=== PATIENT | male | born 1945 | race Hispanic/Latino ===

== ENCOUNTER 2018-08-16 05:08 | Inpatient (IN) | payer MEDICARE ==
[2018-08-13 12:47] LABS: BASOPHILS # (AUTO) 0.1 (0.0-0.1); BASOPHILS % 0.7 % (0.0-1.0); EOSINOPHILS # (AUTO) 0.2 (0.0-0.4); EOSINOPHILS % 2.7 % (0.0-6.0); HEMATOCRIT 38.3 % (38.2-49.6); HEMOGLOBIN 12.2 g/dL (14.0-18.0); LYMPHOCYTES # (AUTO) 2.2 (1.0-3.2); LYMPHOCYTES % 25.6 % (18.0-39.1); MEAN CORPUSCULAR HEMOGLOBIN 28.5 pg (28-32); MEAN CORPUSCULAR HGB CONC 31.9 g/dL (31-35); MEAN CORPUSCULAR VOLUME 89.5 fL (81-99); MONOCYTES # (AUTO) 0.5 (0.2-0.8); MONOCYTES % 5.6 % (4.4-11.3); NEUTROPHILS # (AUTO) 5.5 (2.1-6.9); NEUTROPHILS % 65.2 % (38.7-80.0); PLATELET COUNT 312 x10e3/uL (140-360); RED BLOOD COUNT 4.28 x10e6/uL (4.3-5.7); RED CELL DISTRIBUTION WIDTH 14.5 % (11.7-14.4)
--- NOTE | 2018-08-13 12:48 | Diagnostic Imaging Report ---
EXAMINATION: PA and lateral views of the chest. COMPARISON: None CLINICAL HISTORY: Preoperative examination for urologic surgery DISCUSSION: The lungs are well-inflated and without focal airspace consolidation, pleural effusion, or pneumothorax. Tortuous thoracic aorta with otherwise normal cardiomediastinal contour. No overt pulmonary edema. No acute osseous abnormality. 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 IMPRESSION: No acute cardiopulmonary abnormalities. Signed by: Dr. Sathya Keith M.D. on 08/13/2018 12:45 PM
[2018-08-13 12:53] LABS: ANION GAP 10.9 mmol/L (8-16); CALCIUM 9.3 mg/dL (8.4-10.2); CREATININE, SERUM 1.44 mg/dL (0.72-1.25); POTASSIUM 3.9 mmol/L (3.5-5.1)
[~2018-08-16] VITALS: Ht 160 cm; Wt 85.3 kg
[~2018-08-16 05:08] MED LIST: AMLODIPINE BESYL5 MG PO; LOSARTAN POTASS25 MG PO; NOVOLIN N100 UNIT/1 SQ; TRAZODONE HCL50 MG PO; TYLENOL WITH C1 EACH PO
--- OUTSIDE RECORDS SUMMARY | 2018-08-16 05:11 | XMS REPORT ---
Author Author [facility] Address Unknown Phone Unavailable Care Team Providers Care Sack Maker Name Role Phone Jermaine GUZMAN Unavailable Unavailable Problems This patient has no known problems. Allergies, Adverse Reactions, Alerts This patient has no known allergies or adverse reactions. Medications This patient has no known medications. Results Test Description Test Time Test Comments Text Results Atomic Results Result Comments CHEST 2 VIEWS 2018-08-13 12:44:00 [place] [id number] Patient Name: BETTY HEART MR #: [id number] : 1945 Age/Sex: 73/M Req #: [id number] Adm Physician: Ordered by: HARRISON GUZMAN MD Report #: [id number] Location: OR Room/Bed: Procedure: [id number] DX/CHEST 2 VIEWS Exam Date: 08/13/18 Exam Time: 1225 REPORT STATUS: Signed EXAMINATION: PA and lateral views of the chest. COMPARISON: None CLINICAL HISTORY: Preoperative examination for urologic surgery DISCUSSION: The lungs are well-inflated and without focal airspace consolidation, pleural effusion, or pneumothorax. Tortuous thoracic aorta with otherwise normal cardiomediastinal contour. No overt pulmonary edema. No acute osseous abnormality. 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 IMPRESSION: No acute cardiopulmonary abnormalities. Signed by: Dr. Linda Gray M.D. on 08/13/2018 12:45 PM Dictated By: LINDA GRAY MD [id number] Transcribed By: DYLAN on 08/13/18 1245 COPY TO: HARRISON GUZMAN MD
[2018-08-16] MEDS ORDERED: CEFTRIAXONE SOD 1 GM/NS 50 ML 50 ML IV ONE (06:01)
[2018-08-16] MEDS ORDERED: LIDOCAINE HCL 1% LOCAL INJ 20 ML VIAL ONE (06:37)
[2018-08-16] MEDS ORDERED: BACITRACIN 50,000 UNIT VIAL ONE (06:37)
[2018-08-16] MEDS ORDERED: HYDROMORPHONE 2MG/ML 2 MG/ML ML ONE (10:15)
[2018-08-16] MEDS ORDERED: MORPHINE SULFATE INJ 4 MG/ML INJ 1ML ONE (10:24)
[2018-08-16] MEDS ORDERED: MORPHINE SULFATE 1 MG/ML 30ML PCA ONE (10:25)
--- NOTE | 2018-08-16 11:21 | NUR ---
Patient transferred to unit from PACU. Patient is post op penectomy. Dressing to joanne area noted to have bloody drainage. Patient is AAOx3. [place] speaking only. Family at bedside. Lung wilkes clear to auscultation. Bowel sounds present x4 but no gas at this time. Camacho catheter in place. Straw urine noted. Right hand IV in place. IV fluids and TREE TOPPER pump infusing. Pain noted at 7/10. No s/s of distress noted
[2018-08-16] MEDS ORDERED: ACETAMINOPHEN/CODEINE 300MG - 30MG TAB PO PRN ×2 (11:45→12:00)
[2018-08-16 12:00] VITALS: BP 130/61
[2018-08-16] MEDS: SODIUM CHLORIDE 0.45% 1,000 ML IV SCH ×2 (12:11→20:57)
[2018-08-16 13:32] VITALS: BP 130/61
--- NOTE | 2018-08-16 14:19 | NUR ---
dressing changed to perineal area. Moderate amount of bloody drainage noted. Incision clean and dry. No c/o pain
[2018-08-16 16:23] VITALS: BP 140/70
[2018-08-16] MEDS ORDERED: NPH, HUMAN INSULIN ISOPHANE 100 UNIT/1 ML 3ML VIAL SQ SCH (16:30)
[2018-08-16] MEDS ORDERED: PHENYLEPHRINE HCL 1% 10 MG/ML VIAL ONE (17:39)
[2018-08-16] MEDS ORDERED: LIDOCAINE HCL 2% LOCAL INJ 5 ML SDV VIAL INJ ONE (17:39)
[2018-08-16] MEDS ORDERED: ONDANSETRON HCL INJ 2MG/ML 2ML 2 MG/ML VIAL ONE (17:39)
[2018-08-16] MEDS ORDERED: DEXAMETHASONE SOD PHOS INJ 4 MG/ML VIAL ONE (17:39)
[2018-08-16] MEDS ORDERED: PROPOFOL IV EMULSION 10 MG/ML 20 ML VIAL ONE (17:39)
[2018-08-16] MEDS ORDERED: GLYCOPYRROLATE INJ 1MG/ 5 ML SYR ONE (17:39)
[2018-08-16] MEDS ORDERED: ACETAMINOPHEN 1000 MG/100 ML IV ONE (17:39)
[2018-08-16] MEDS ORDERED: SEVOFLURANE INHAL SOLN 250 ML PEN BTL ONE (17:39)
[2018-08-16] MEDS ORDERED: ROCURONIUM BROMIDE 10 MG/ML 5ML VIAL ONE (17:39)
[2018-08-16] MEDS ORDERED: NEOSTIGMINE 5 MG/5ML SYR ONE (17:39)
[2018-08-16] MEDS ORDERED: MIDAZOLAM HCL 2 MG/2 ML VIAL ONE (17:59)
[2018-08-16] MEDS ORDERED: MORPHINE SULFATE INJ 10 MG/ML ONE (17:59)
[2018-08-16] MEDS ORDERED: FENTANYL CITRATE/PF 100MCG/2 ML INJ ONE (17:59)
[2018-08-16] MEDS ORDERED: MORPHINE SULFATE 1 MG/ML 30ML PCA IV PRN (19:00)
[2018-08-16 19:45] VITALS: BP 140/70
[2018-08-16 20:00] VITALS: BP 138/62
[2018-08-16] MEDS ORDERED: ONDANSETRON HCL INJ 2MG/ML 2ML 2 MG/ML VIAL IV PRN (20:00)
[2018-08-16] MEDS: TRIMETHOPRIM/SULFAMETHOXAZOLE 160-800 MG TAB PO SCH (20:55)
[2018-08-16] MEDS: NPH, HUMAN INSULIN ISOPHANE 100 UNIT/1 ML 3ML VIAL SQ SCH (20:57)
[2018-08-16] MEDS ORDERED: TRAZODONE HCL 50 MG TAB PO SCH (21:00)
--- NOTE | 2018-08-16 22:30 | NUR ---
Dressing changed to perineal area and applied new ABD pads. Moderate amount of bloody drainage noted. Incision clean and dry. No c/o pain
[2018-08-17 00:43] VITALS: BP 118/63
[2018-08-17 04:00] VITALS: BP 116/55
--- NOTE | 2018-08-17 06:06 | NUR ---
Cleaned the patient's groin. Small drainage noted on the ABD dressing. Dressing change ABD. Patient tolerated procedure well. Continue to change dressing as needed.
[2018-08-17 06:19] LABS: BASOPHILS % 0.2 % (0.0-1.0); HEMATOCRIT 30.9 % (38.2-49.6); HEMOGLOBIN 9.9 g/dL (14.0-18.0); LYMPHOCYTES # (AUTO) 1.4 (1.0-3.2); LYMPHOCYTES % 12.9 % (18.0-39.1); MEAN CORPUSCULAR VOLUME 90.6 fL (81-99); MONOCYTES # (AUTO) 0.7 (0.2-0.8); MONOCYTES % 5.9 % (4.4-11.3); NEUTROPHILS # (AUTO) 8.9 (2.1-6.9); NEUTROPHILS % 80.6 % (38.7-80.0); PLATELET COUNT 274 x10e3/uL (140-360); RED BLOOD COUNT 3.41 x10e6/uL (4.3-5.7); RED CELL DISTRIBUTION WIDTH 14.6 % (11.7-14.4)
[2018-08-17 06:46] LABS: ALBUMIN 2.5 g/dL (3.5-5.0); ALBUMIN/GLOBULIN RATIO 0.5 (0.8-2.0); ANION GAP 11.9 mmol/L (8-16); CALCIUM 8.2 mg/dL (8.4-10.2); CREATININE, SERUM 1.5 mg/dL (0.72-1.25); POTASSIUM 4.9 mmol/L (3.5-5.1)
[2018-08-17] MEDS: SODIUM CHLORIDE 0.45% 1,000 ML IV SCH ×2 (07:45→09:09)
[2018-08-17 08:16] VITALS: BP 112/53
[2018-08-17 08:30] VITALS: BP 112/53
[2018-08-17] MEDS ORDERED: HYDROCODONE/APAP 5MG-325MG TAB PO PRN ×2 (08:30→08:45)
[2018-08-17] MEDS: TRIMETHOPRIM/SULFAMETHOXAZOLE 160-800 MG TAB PO SCH (08:45)
[2018-08-17] MEDS: NPH, HUMAN INSULIN ISOPHANE 100 UNIT/1 ML 3ML VIAL SQ SCH (08:46)
[2018-08-17] MEDS ORDERED: AMLODIPINE BESYLATE 5 MG TAB PO SCH (09:00)
[2018-08-17] MEDS ORDERED: LOSARTAN POTASSIUM 25 MG TAB PO SCH (09:00)
--- NOTE | 2018-08-17 09:12 | NUR ---
BRITT CATHETER CHANGE TO LEG BAG INSTRUCTIONS GIVEN TO PT. PT VERBALIZED UNDERSTANDING. ASSISTED PT TO SIT IN CHAIR AT THIS TIME. CALL LIGHT WITHIN REACH. BED LOCKED AND IN LOWEST POSITION. WILL CONTINUE TO MONITOR.
--- NOTE | 2018-08-17 09:54 | NUR ---
PT FOUND BACK IN BED ASSISTED TO BED BY ANOTHER RN. PT STATES HE IS HAVING PAIN AND WOULD LIKE TO AMBULATE LATER. CALL LIGHT WITHIN REACH. FAMILY AT BEDSIDE.
--- NOTE | 2018-08-17 10:54 | NUR ---
PT AMBULATING IN HALLWAY AT THIS TIME WITH FAMILY.
[2018-08-17 12:03] VITALS: BP 117/57
--- NOTE | 2018-08-17 13:39 | NUR ---
PT AMBULATING IN HALLWAY AT THIS TIME.
--- NOTE | 2018-08-17 14:16 | NUR ---
CASE MANAGEMENT INITIAL ASSESSMENT Communication Arts Lecturer to bedside to discuss plan of care with patient/family. CM/SW role and care transitions discussed. Anticipated discharge plan discussed along with duration of care. CM/SW discussed patients right to make decisions in care. CM work hours given. Patient lives: PATIENT LIVES IN 1 STORY HOME WITH DAUGHTER LESLY IN [place], [place] Admit/Transfer: OR Hospital/ER visits since last admit: NONE POA/Emergency contact: DAUGHTER- DEBORA PIERCE: [phone] Current/Previous Home Health: NONE AT THIS TIME PCP/Follow-up Care: DR. ORLANDO BELLA Current/Previous DME: JOE ROSADO Medications (referring to index hospitalization or the first time you were in the hospital) a. Were changes made in your medications when you were in the hospital on [date of index hospitalization]? Yes No Not sure Explain: Note: If no or not sure, please skip to question d b. Did you understand the changes? Yes No Explain: c. Were you able to obtain your new medications right away? Yes Non/a SNF only Explain: d. Were you able to take your medications like the doctor wanted you to? Yes No Explain: e. Did the hospital give you an accurate, easy to understand list of medications when you left? Yes No n/a SNF only Explain: Scale of 1-10 how comfortable does patient feel with disease management in outpatient setting: Other Services: NONE AT THIS TIME Employment Status: RETIRED Areas of Concerns: POST OP CARE Referral Needs: NONE AT THIS TIME Education Needs: CATHETER CARE/ POST OP CARE IMM/MCKINLEY given and signed (if applicable): IMM Goal for discharge: DISCHARGE HOME WITH NO NEEDS CM left business card at the bedside with contact information. Name and number was also written on the patients whiteboard. Patient verbalized understanding of discussion. CM will follow-up with ongoing discharge and transition of care needs.
--- NOTE | 2018-08-17 15:14 | NUR ---
RECEIVED CALL FROM DR. GUZMAN. UPDATED ON PT STATUS. STATES OK TO D/C HOME. HE WILL CALL IN RX FOR PAIN AND ANTIBIOTICS TO PHARMACY. OK TO SHOWER TOMORROW. FOLLOW UP NEXT WEEK TO D/C KATHY.
--- NOTE | 2018-08-17 15:47 | NUR ---
DISCHARGE INSTRUCTIONS GIVEN. PT AND DAUGHTERS X2 VERBALIZE UNDERSTANDING. BRITT CARE AND CHANGING BETWEEN LEG BAG AND BEDSIDE BAG INSTRUCTIONS GIVEN. PT VERBALIZED UNDERSTANDING. ALL QUESTIONS ANSWERED. IV D/C AND PRESSURE DRESSING APPLIED.
== END 2018-08-17 15:51 | disposition home or self-care (01) | DRG 710 ==
LOC: OR 05:08 → PACU V 09:48 → MED/SURG 11:22
PROVIDERS: ADMIT Urology; ATTEND Urology
PROC: 0VTS0ZZ Resection of Penis, Open Approach (ICD-10-PCS; principal; 2018-08-16 07:28)
DX: C60.9 Malignant neoplasm of penis, unspecified (principal); I10 Essential (primary) hypertension; E78.5 Hyperlipidemia, unspecified
CPT/HCPCS: 36415; 71046; 80048; 80053; 82948; 85025; 88305; 88309; 88331; 88342; 93005; 96361; J0696; J1100; J2001; J2250; J2270; J2370; J2405